=== PATIENT | male | born 1995 | race Caucasian/White ===

== ENCOUNTER 2018-02-09 17:41 | Emergency (ER) | payer MEDICAID ==
[~2018-02-09] VITALS: Ht 167.6 cm; Wt 59.1 kg
[2018-02-09] MEDS ORDERED: LORazepam 2 MG TABLET PO ONE (18:30)
[2018-02-09] MEDS ORDERED: BENZTROPINE MESYLATE 1 MG/ML 2 ML VIAL IM ONE (18:30)
[2018-02-09] MEDS ORDERED: DiphenhydrAMINE HCL 50 MG/ML VIAL IM ONE (18:30)
[2018-02-09 19:35] VITALS: BP 131/77
== END 2018-02-09 19:35 | disposition home or self-care (01) ==
LOC: EMS 17:43
DX: G24.09 Other drug induced dystonia (principal); T43.625A Adverse effect of amphetamines, initial encounter; F15.10 Other stimulant abuse, uncomplicated; J45.909 Unspecified asthma, uncomplicated; F17.210 Nicotine dependence, cigarettes, uncomplicated; Y92.89 Other specified places as the place of occurrence of the external cause
CPT/HCPCS: 96372; 99284; 99406; J0515; J1200

== ENCOUNTER 2019-07-21 00:09 | Emergency (ER) | payer MEDICAID ==
[~2019-07-21] VITALS: Ht 167.6 cm; Wt 72.7 kg
[2019-07-21 00:29] VITALS: BP 151/110
== END 2019-07-21 02:50 | disposition left against medical advice (07) ==
LOC: EMS 00:11
DX: F41.9 Anxiety disorder, unspecified (principal); Z53.21 Procedure and treatment not carried out due to patient leaving prior to being seen by health care provider